=== PATIENT | female | born 1965 | race Caucasian/White ===

== ENCOUNTER 2023-09-15 13:21 | Emergency (ER) | payer SELFPAY | END 2023-09-15 16:42 | disposition home or self-care (01) | LOC: ERS 13:21 | DX: H60.92 Unspecified otitis externa, left ear (principal); L98.9 Disorder of the skin and subcutaneous tissue, unspecified; E11.9 Type 2 diabetes mellitus without complications; I10 Essential (primary) hypertension; F17.210 Nicotine dependence, cigarettes, uncomplicated; F17.290 Nicotine dependence, other tobacco product, uncomplicated | CPT/HCPCS: 99283 ==